=== PATIENT | male | born 1990 | race Caucasian/White ===

== ENCOUNTER 2016-06-07 00:32 | Emergency (ER) | payer OTHER ==
[~2016-06-07] VITALS: Ht 172.7 cm; Wt 128.8 kg
[~2016-06-07 00:32] MED LIST: MONT1TAB3 PO; WEIGHT LOSS MED PO
[2016-06-07 00:48] VITALS: TEMP 36.9; Ht 172.7 cm; Wt 128.8 kg
[2016-06-07] MEDS ORDERED: ONDANSETRON INJ 2 MG/ML 2 ML VIAL IV STA (01:32)
[2016-06-07] MEDS ORDERED: SODIUM CHLORIDE 0.9% 1000ML 1,000 ML IV ONE ×2 (01:45)
[2016-06-07 01:49] LABS: BASO % 0.3 %; BASO ABS # 0.02 K/uL (0-0.2); COMPLETE YES; EOS % 3.3 %; HEMATOCRIT 44.7 % (42-52); IG% 0.2 %; LYMPH % 25.7 %; LYMPH ABS # 1.69 K/uL (1.2-3.4); MEAN CELL VOLUME 80.8 fL (80-100); MEAN CORPUSCULAR HEMOGLOBIN 28.8 pg (25-34); MEAN CORPUSCULAR HGB CONC 35.6 g/dl (32-36); MEAN PLATELET VOLUME 9.1 fL (7.4-10.4); MONO % 13.1 %; NEUT % 57.4 %; PLATELET COUNT 183 K/uL (130-400); RED BLOOD COUNT 5.53 M/uL (4.7-6.1); WHITE BLOOD COUNT 6.57 K/uL (4.8-10.8)
[2016-06-07] MEDS ORDERED: OMEP40CA PO (01:49)
[2016-06-07 02:32] LABS: ALB/GLOB RATIO 0.9 (0.9-2); BUN/CREATININE RATIO 15.4 (10-20); CALCIUM 7.9 mg/dl (8.5-10.1); CREATININE 0.87 mg/dl (0.60-1.40); POTASSIUM 3.7 mmol/L (3.5-5.1)
[2016-06-07 02:42] VITALS: BP 122/78; PULSE 96; O2SAT 97
[2016-06-07] MEDS ORDERED: ONDANSETRON HOME PACK 4MG OD TAB PO ONE (04:15)
--- NOTE | 2016-06-07 07:15 | DIAGNOSTIC IMAGING REPORT ---
PA CHEST RADIOGRAPH AND UPRIGHT AND SUPINE AP RADIOGRAPHS OF THE ABDOMEN CLINICAL HISTORY: Abdominal cramping, nausea, vomiting and diarrhea. COMPARISON STUDY: Chest radiograph May 05, 2016 and abdominal ultrasound December 28, 2014 FINDINGS: Lung volumes are at the lower limits of normal. Lungs are clear. There is no pneumothorax or pleural effusion. Cardiac size is normal. Mediastinal contours are normal. There is no free air. There is mild rightward curvature of the lumbar spine. There are tiny radiodensities within the stool. There is no evidence for a bowel obstruction. IMPRESSION: 1. No free air or evidence of bowel obstruction. 2. No acute cardiopulmonary findings. Electronically signed by: Reuben Noel M.D. 06/07/2016 7:13 AM
--- NOTE | 2016-06-08 05:43 | EMERGENCY ROOM VISIT NOTE ---
History First contact with patient: 01:10 Chief Complaint: DIARRHEA Stated Complaint: DIARRHEA History of Present Illness The patient is a 26 year old male who presents to the Emergency Room with complaints of diarrhea for the past day. The patient does not report significant fever, chills, chest pain, chest, shortness of breath. He has abdominal cramping but nondistended abdominal pain. He has been taking Pepto- Bismol today to relieve his symptoms. The patient states that he initially had normal stools, then watery stools, and now he has black stools. He has not had similar symptoms in the past. He does not have a history of inflammatory bowel disease. No recent antibiotic use. He rates his discomfort a 6/10. Review of Systems More than 10 systems were reviewed and otherwise negative with the exception of history of present illness. Past Medical/Surgical History Medical Problems: (1) Hypercholesterolemia (2) Morbid Obesity Surgical Problems: (1) History of wisdom tooth extraction (2) No significant past surgical history Family History FH: diabetes mellitus FH: heart disease Social History Smoking Status: Never Smoker Alcohol Use: none Marital Status: Occupation Status: employed Current/Historical Medications Scheduled Montelukast Sodium (Singulair), 10 MG PO DAILY Omeprazole (Prilosec), 40 MG PO BID [Otc Weight Loss Med], 1 TAB PO DAILY Allergies Uncoded Allergies: SULFA (Allergy, Unknown, as an infant, 02/20/15) Physical Exam Vital Signs Date Time Temp Pulse Resp B/P Pulse Ox O2 Delivery O2 Flow Rate FiO2 06/07/16 02:42 96 19 122/78 97 Room Air 06/07/16 00:48 36.9 105 18 134/86 95 Room Air Pain Rating (0-10): 0 Physical Exam VITALS: Vitals are noted on the nurse's note and reviewed by myself. Vital signs stable. GENERAL: Well-developed, well-nourished, white male, who is in no acute distress and resting comfortably. Patient is cooperative with the examination. HEAD: Normocephalic atraumatic. MOUTH: Mucous membranes moist. Tonsils are not enlarged. Pharynx without erythema, blood, or exudate. Uvula midline. Airway patent. NECK: Supple without nuchal rigidity. No lymphadenopathy. No thyromegaly. Cervical spine is nontender. HEART: Regular rate and rhythm without murmurs gallops or rubs. LUNGS: Clear to auscultation bilaterally without wheezes, rales or rhonchi. No retractions or accessory muscle use. ABDOMEN: Positive normal bowel sounds x 4. Soft, nontender, without masses or organomegaly. No guarding or rebound tenderness. MUSCULOSKELETAL: No muscle atrophy, erythema, or edema noted. Full range of motion without joint tenderness in all extremities. Medical Decision & Procedures ER Provider Diagnostic Interpretation: PA CHEST RADIOGRAPH AND UPRIGHT AND SUPINE AP RADIOGRAPHS OF THE ABDOMEN CLINICAL HISTORY: Abdominal cramping, nausea, vomiting and diarrhea. COMPARISON STUDY: Chest radiograph May 05, 2016 and abdominal ultrasound December 28, 2014 FINDINGS: Lung volumes are at the lower limits of normal. Lungs are clear. There is no pneumothorax or pleural effusion. Cardiac size is normal. Mediastinal contours are normal. There is no free air. There is mild rightward curvature of the lumbar spine. There are tiny radiodensities within the stool. There is no evidence for a bowel obstruction. IMPRESSION: 1. No free air or evidence of bowel obstruction. 2. No acute cardiopulmonary findings. Laboratory Results 06/07/16 01:25 Red Blood Count 5.53, Mean Corpuscular Volume 80.8, Mean Corpuscular Hemoglobin 28.8, Mean Corpuscular Hemoglobin Concent 35.6, Mean Platelet Volume 9.1, Neutrophils (%) (Auto) 57.4, Lymphocytes (%) (Auto) 25.7, Monocytes (%) (Auto) 13.1, Eosinophils (%) (Auto) 3.3, Basophils (%) (Auto) 0.3, Neutrophils # (Auto ) 3.77, Lymphocytes # (Auto) 1.69, Monocytes # (Auto) 0.86, Eosinophils # (Auto ) 0.22, Basophils # (Auto) 0.02 06/07/16 01:25 Test 06/07/16 01:25 White Blood Count 6.57 K/uL (4.8-10.8) Red Blood Count 5.53 M/uL (4.7-6.1) Hemoglobin 15.9 g/dL (14.0-18.0) Hematocrit 44.7 % (42-52) Mean Corpuscular Volume 80.8 fL (80-100) Mean Corpuscular Hemoglobin 28.8 pg (25-34) Mean Corpuscular Hemoglobin Concent 35.6 g/dl (32-36) Platelet Count 183 K/uL (130-400) Mean Platelet Volume 9.1 fL (7.4-10.4) Neutrophils (%) (Auto) 57.4 % Lymphocytes (%) (Auto) 25.7 % Monocytes (%) (Auto) 13.1 % Eosinophils (%) (Auto) 3.3 % Basophils (%) (Auto) 0.3 % Neutrophils # (Auto) 3.77 K/uL (1.4-6.5) Lymphocytes # (Auto) 1.69 K/uL (1.2-3.4) Monocytes # (Auto) 0.86 K/uL (0.11-0.59) Eosinophils # (Auto) 0.22 K/uL (0-0.5) Basophils # (Auto) 0.02 K/uL (0-0.2) RDW Standard Deviation 37.5 fL (36.4-46.3) RDW Coefficient of Variation 12.9 % (11.5-14.5) Immature Granulocyte % (Auto) 0.2 % Immature Granulocyte # (Auto) 0.01 K/uL (0.00-0.02) Anion Gap 12.0 mmol/L (3-11) Est Creatinine Clear Calc Drug Dose 169.9 ml/min Estimated GFR () 139.0 Estimated GFR (Non- 120.0 BUN/Creatinine Ratio 15.4 (10-20) Calcium Level 7.9 mg/dl (8.5-10.1) Total Bilirubin 0.3 mg/dl (0.2-1) Aspartate Amino Transf (AST/SGOT) 20 U/L (15-37) Alanine Aminotransferase (ALT/SGPT) 33 U/L (12-78) Alkaline Phosphatase 122 U/L (45-117) Total Protein 7.5 gm/dl (6.4-8.2) Albumin 3.6 gm/dl (3.4-5.0) Globulin 3.9 gm/dl (2.5-4.0) Albumin/Globulin Ratio 0.9 (0.9-2) Chemistry Specimen Hemolysis Date/Time Source Procedure Growth Status 06/07/16 01:20 Stool C.difficile Toxin B Gene (PCR) - Final No C. difficile toxin B gene detected Complete Medications Administered Medications (Trade) Dose Ordered Sig/Itzel Route Start Time Stop Time Status Last Admin Dose Admin Sodium Chloride 1,000 ml @ 999 mls/hr Q1H1M ONCE IV 06/07/16 01:45 06/07/16 02:45 DC 06/07/16 01:42 999 MLS/HR Sodium Chloride (Nss 1000ml) 1,000 ml @ 999 mls/hr Q1H1M ONCE IV 06/07/16 01:45 06/07/16 02:45 DC 06/07/16 01:45 999 MLS/HR Ondansetron HCl (Zofran Inj) 4 mg NOW STAT IV 06/07/16 01:32 06/07/16 01:34 DC 06/07/16 01:32 4 MG Ondansetron HCl (ZOFRAN ODT 4MG Home Pack) 1 homepack UD ONCE PO 06/07/16 04:15 06/07/16 04:16 DC 06/07/16 04:14 1 HOMEPACK ED Course Physical exam and history were performed. Nursing notes and EMR were reviewed. Patient appears to have diarrhea for the past one day. The patient does not appear toxic on exam. IV access was established and labs were obtained. Patient was hydrated with normal saline. Stool sample was collected. The patient did have mild nausea and was provided IV Zofran here in the department. Plain films were obtained. The patient's blood work is as above and was reviewed. He does not have a significantly low blood cell count, anemia, bandemia, or gross lateral imbalance. Lipase and urinalysis are nondiagnostic. The patient's stool sample did not show positive for C. difficile. Culture is pending. Abdominal x -ray does not show obstructive process or free air. Overall the patient did have significant improvement after hydration here in the department. I suspect that his symptoms are viral or possibly food borne in nature. He will be given a home pack of Zofran and asked to refrain from using Pepto-Bismol. The patient should follow with his primary care physician in the next few days for recheck and was otherwise invited back to the ER with any new, worsening, or concerning symptoms. The chart was completed utilizing [employer] Voice Recognition Software. Grammatical errors, random word insertions, pronoun errors, and incomplete sentences are an occasional consequence of this system due to software limitations, ambient noise, and hardware issues. Any formal questions or concerns about the content, text, or information contained within the body of this dictation should be directly addressed to the provider for clarification. . Medical Decision Differential diagnosis: Etiologies such as appendicitis, diverticulitis, PUD, biliary pathology, UTI, pancreatitis, obstruction, mesenteric ischemia, aortic pathology, infections, inflammatory bowel disease, renal colic, as well as others were entertained. Impression Primary Impression: Diarrhea Departure Information Dispostion Home / Self-Care Condition FAIR Forms WORK / SCHOOL INSTRUCTIONS, HOME CARE DOCUMENTATION FORM, IMPORTANT VISIT INFORMATION Patient Instructions A Signature Page, [facility] Additional Instructions You were seen and evaluated today on an emergency basis only. This is not a substitute for, or an effort to provide, complete comprehensive medical care. It is not possible to recognize and treat all injuries or illnesses in a single emergency department visit. For this reason it is recommended that you followup with your primary care physician this week for ongoing care and evaluation. Drink plenty fluids and remain well hydrated. Zofran (homepack) 1 tablet every 6 hrs as needed for nausea. You are welcome to return to the emergency department anytime with new, worsening, or concerning symptoms.
[2016-07-21] MEDS ORDERED: HYDR-3419 PO (08:20)
== END 2016-06-07 04:15 | disposition home or self-care (01) ==
LOC: C.EDB 00:33
DX: R19.7 Diarrhea, unspecified (principal); R11.0 Nausea; E66.01 Morbid (severe) obesity due to excess calories; Z79.899 Other long term (current) drug therapy; Z68.41 Body mass index [BMI] 40.0-44.9, adult

== ENCOUNTER → 2016-07-21 | Day surgery (SDC) | payer OTHER ==
[2016-07-04 11:18] VITALS: Ht 172.7 cm; Wt 127.3 kg
[~2016-07-21] VITALS: Ht 172.7 cm; Wt 127.3 kg
[~2016-07-21] MED LIST changes: +ATROPINE SULFATE 0.1 MG/ML 5ML SYR IV PRN; +BUPIVACAINE 0.5 % 5 MG/1 ML MPF 30ML VIAL ONE; +CEFAZOLIN 3000 MG/65 ML D5W IV SCH; +DEXAMETHASONE SOD INJ 4 MG/ML VIAL ONE; +EpHEDrine SULFATE INJ 50 MG/ML AMP IV PRN; +FENTANYL CITRATE INJ 50 MCG/1 ML 2 ML VIAL IV PRN; +FENTANYL CITRATE INJ 50 MCG/1 ML 2 ML VIAL ONE; +HYDR-3419 PO; +HYDROCODONE/ACETAMOPHEN 5/325MG TAB PO PRN; +LACTATED RINGER'S 1000ML 1,000 ML IV SCH; +LIDOCAINE HCL 2% 2 ML VIAL (20MG/ML) ONE; +MIDAZOLAM HCL 1 MG/ML 2ML VIAL ONE; +NURSING VERBAL MED ORDER ONE; +OMEP40CA PO; +ONDANSETRON INJ 2 MG/ML 2 ML VIAL IV PRN; +ONDANSETRON INJ 2 MG/ML 2 ML VIAL ONE; +PROPOFOL IV EMULSION 10 MG/ML 20 ML VIAL IV ONE; -WEIGHT LOSS MED PO
--- NOTE | 2016-07-21 07:01 | History & Physical Bridge - SC ---
H&P Re-Evaluation Bridge Note: I have examined the patient, reviewed the History & Physical and in the interval since the performance of the History & Physical I have noted the following changes of clinical significance: No changes noted
--- NOTE | 2016-07-21 08:21 | Discharge Instructions-SurgCtr ---
Discharge Instructions Visit Reason for Visit: Sterilization Discharge Discharge Diagnosis / Problem: post op vasectomy Discharge Goals Goal(s): Decrease discomfort, Increase independence Activity Recommendations Activity Limitations: resume your previous activity Anesthesia . Post Anesthesia Instructions: If you have had General Anesthesia or IV Sedation: * Do not drive today. * Resume driving when surgeon permits. * Do not make important decisions or sign legal documents today. * Call surgeon for: 1. Temperature elevations greater than 101 degrees F. 2. Uncontrollable pain. 3. Excessive bleeding. 4. Persistent nausea and vomiting. 5. Medication intolerance (nausea, vomiting or rash). * For nausea and vomiting use only clear liquids such as: tea, soda, bouillon until nausea subsides, then gradually increase diet as tolerated. * If you have any concerns or questions, call your surgeon's office. If physician is unavailable and it is an emergency, call 911 or go to the nearest emergency room. . Diet Recommendations Home Diet: no limitations Procedures Procedures Performed: Vasectomy Under Anesthesia Pending Studies Studies pending at discharge: no Medical Emergencies . Who to Call and When: Medical Emergencies: If at any time you feel your situation is an emergency, please call 911 immediately. . Non-Emergent Contact Non-Emergency issues call your: Urologist . . "Provider Documentation" section prepared by Jaden Marie. [place] Drug Monitoring Program Drug Monitoring Findings: checked yesterday
[2016-07-21 09:19] VITALS: BP 136/86; PULSE 77; TEMP 36.4; O2SAT 96
--- NOTE | 2016-07-21 09:19 | Anesthesia Progress Nt - [facility] ---
Anesthesia Post Op Note Date & Time Jul 21, 2016 at 09:19 Vital Signs Pain Intensity: 0 Vital Signs Past 12 Hours Date Time Temp Pulse Resp B/P Pulse Ox O2 Delivery O2 Flow Rate FiO2 07/21/16 09:04 36.3 82 16 137/90 96 Room Air 07/21/16 08:58 149/100 07/21/16 08:54 90 12 07/21/16 08:54 93 12 96 07/21/16 08:53 75 14 07/21/16 08:53 75 14 149/91 95 07/21/16 08:50 36.5 85 19 156/99 97 Room Air 07/21/16 08:48 83 14 156/99 96 07/21/16 08:48 81 14 07/21/16 08:43 83 4 157/90 100 07/21/16 08:43 82 4 07/21/16 08:38 94 10 147/94 100 07/21/16 08:38 93 10 07/21/16 08:33 92 18 165/87 100 07/21/16 08:33 90 18 07/21/16 08:28 87 18 150/92 100 07/21/16 08:28 87 18 07/21/16 08:23 106 15 07/21/16 08:23 105 15 142/101 100 07/21/16 08:18 87 14 145/89 99 07/21/16 08:18 36.6 95 16 143/100 100 Mask 6 07/21/16 08:18 88 14 07/21/16 06:21 36.5 71 16 144/94 95 Room Air Notes Mental Status: alert / awake / arousable, participated in evaluation Pt Amnestic to Procedure: Yes Nausea / Vomiting: adequately controlled Pain: adequately controlled Airway Patency, RR, SpO2: stable & adequate BP & HR: stable & adequate Hydration State: stable & adequate Anesthetic Complications: no major complications apparent
--- NOTE | 2016-07-21 13:52 | OPERATIVE REPORT ---
DATE OF OPERATION: 07/21/2016 PROCEDURE PERFORMED: Bilateral vasectomy. HISTORY OF PRESENTATION: The patient is a 26-year-old male desiring vasectomy who had very difficult to feel vases in the office, who is scheduled for a vasectomy under anesthesia. DESCRIPTION OF THE PROCEDURE: The patient was brought to the operating room where he was given general anesthesia with Venodyne stockings. He was prepped and draped in the usual sterile fashion. The vas was first found on the right side, a small incision was made. The vas was grasped with a ring forceps. It was dissected free. Clips were placed on each end of the vas and the ends of the vases were cauterized. There was no evidence of any bleeding. The vas was placed back into the hemiscrotum and then closed. The other side was done in a like fashion. There was no evidence of any bleeding, 2 sutures of chromic were placed in each suture. It was a second suture admitted because I could not swing the first set to the second. Two pieces of vas were sent to pathology. Sponge and needle count were correct. I attest to the content of the Intraoperative Record and any orders documented therein. Any exceptio ns are noted below.
== END | disposition home or self-care (01) ==
LOC: X.SURG 06:01
PROVIDERS: ATTEND Urology
DX: Z30.2 Encounter for sterilization (principal); G47.19 Other hypersomnia; R53.83 Other fatigue; G47.30 Sleep apnea, unspecified

== ENCOUNTER 2017-08-26 21:51 | Emergency (ER) | payer BC, OTHER ==
[~2017-08-26] VITALS: Ht 172.7 cm; Wt 131.8 kg
[~2017-08-26 21:51] MED LIST changes: -ATROPINE SULFATE 0.1 MG/ML 5ML SYR IV PRN; -BUPIVACAINE 0.5 % 5 MG/1 ML MPF 30ML VIAL ONE; -CEFAZOLIN 3000 MG/65 ML D5W IV SCH; -DEXAMETHASONE SOD INJ 4 MG/ML VIAL ONE; -EpHEDrine SULFATE INJ 50 MG/ML AMP IV PRN; -FENTANYL CITRATE INJ 50 MCG/1 ML 2 ML VIAL IV PRN; -FENTANYL CITRATE INJ 50 MCG/1 ML 2 ML VIAL ONE; -HYDR-3419 PO; -HYDROCODONE/ACETAMOPHEN 5/325MG TAB PO PRN; -LACTATED RINGER'S 1000ML 1,000 ML IV SCH; -LIDOCAINE HCL 2% 2 ML VIAL (20MG/ML) ONE; -MIDAZOLAM HCL 1 MG/ML 2ML VIAL ONE; -NURSING VERBAL MED ORDER ONE; -ONDANSETRON INJ 2 MG/ML 2 ML VIAL IV PRN; -ONDANSETRON INJ 2 MG/ML 2 ML VIAL ONE; -PROPOFOL IV EMULSION 10 MG/ML 20 ML VIAL IV ONE
[2017-08-26 21:55] VITALS: TEMP 36.7; Ht 172.7 cm; Wt 131.8 kg
[2017-08-26] MEDS ORDERED: OMEP-334 PO (22:23)
--- NOTE | 2017-08-26 22:35 | DIAGNOSTIC IMAGING REPORT ---
L FOOT MIN 3 VIEWS ROUTINE CLINICAL HISTORY: 27 years-old Male presenting with foot pain. TECHNIQUE: Frontal, oblique, and lateral views of the left foot were obtained. COMPARISON: None. FINDINGS: No acute fracture or malalignment. Small bone spurs at the insertion of the Achilles tendon and origin of the plantar fascia. No advanced degenerative change. No radiographic soft tissue abnormality. IMPRESSION: No acute osseous injury. Electronically signed by: Adalberto Perez M.D. 08/26/2017 10:34 PM Dictated Date/Time: 08/26/2017 10:32 PM
[2017-08-26 23:36] VITALS: BP 143/79; PULSE 85; O2SAT 97
--- NOTE | 2017-08-26 23:45 | EMERGENCY ROOM VISIT NOTE ---
History First contact with patient: 22:05 Chief Complaint: TOE PAIN, INJURY Stated Complaint: PAIN IN L TOE History of Present Illness The patient is a 27 year old male who presents to the Emergency Room with complaints of pain in his left great toe. The patient reports that he was at work this morning and slipped and fell, rolling his ankle. He states that he does not have ankle pain, however he has pain radiating throughout his left great toe. The injury occurred at approximately 6 AM. He has had persistent pain through the day which is worse with walking. He rates his discomfort a 6/ 10 at rest, 9/10 when walking. He states the pain is dull. He denies numbness or weakness. He denies any further injuries. Review of Systems A 6 point review of systems was reviewed with the patient with pertinent positives and negatives as per history of present illness. All else were negative. Past Medical/Surgical History Medical Problems: (1) Hypercholesterolemia (2) Morbid Obesity Surgical Problems: (1) History of wisdom tooth extraction (2) No significant past surgical history Family History FH: diabetes mellitus FH: heart disease Social History Smoking Status: Never Smoker Alcohol Use: none Marital Status: Occupation Status: employed Current/Historical Medications Scheduled Montelukast Sodium (Singulair), 10 MG PO QAM Scheduled PRN Omeprazole (Omeprazole Dr), 40 MG PO DAILY PRN for Indigestion Physical Exam Vital Signs Date Time Temp Pulse Resp B/P (MAP) Pulse Ox O2 Delivery O2 Flow Rate FiO2 08/26/17 23:36 85 18 143/79 97 Room Air 08/26/17 21:55 36.7 88 18 157/94 97 Room Air Physical Exam VITALS: Vitals are noted on the nurse's note and reviewed by myself. Vital signs stable. GENERAL: This is a 27-year-old male, in no acute distress, nondiaphoretic, well- developed well-nourished. MUSCULOSKELETAL: There is mild tenderness to palpation over the left great toe and first metatarsal. Decreased range of motion, seems to be secondary to discomfort. NEURO: Patient was alert and oriented to person place and time. Normal sensation. Medical Decision & Procedures ER Provider Diagnostic Interpretation: L FOOT MIN 3 VIEWS ROUTINE CLINICAL HISTORY: 27 years-old Male presenting with foot pain. TECHNIQUE: Frontal, oblique, and lateral views of the left foot were obtained. COMPARISON: None. FINDINGS: No acute fracture or malalignment. Small bone spurs at the insertion of the Achilles tendon and origin of the plantar fascia. No advanced degenerative change. No radiographic soft tissue abnormality. IMPRESSION: No acute osseous injury. Medical Decision Differential diagnosis includes fracture, contusion, sprain, among others. The patient was evaluated as above. X-ray of the left foot was obtained and read by radiology with no acute findings. Patient was placed in a postoperative shoe for comfort. Conservative measures were discussed. The patient will follow up with his primary care provider or orthopedics as needed for persistent or worsening symptoms. Conservative measures were discussed. He verbalized understanding of my assessment and treatment plan and was discharged home in good condition. Medication Reconcilliation Current Medication List: was personally reviewed by me Blood Pressure Screening Patient's blood pressure: Elevated blood pressure Blood pressure disposition: Elevated BP felt to be situational Impression Primary Impression: Contusion of foot, left Departure Information Dispostion Home / Self-Care Condition GOOD Referrals Tom Patel M.D. (PCP) Patient Instructions My [facility] Additional Instructions You have been treated in the Emergency Department for a foot injury. For pain control, you can use the following [id number] medicines (if >12 yo): - Regular strength (325mg/tab) Tylenol (acetaminophen) 2 tabs every 4-6 hours as needed. Do not exceed 12 tablets in a 24 hour period. Avoid taking more than 4 grams (4000 mg) of Tylenol per day. This includes any other sources of acetaminophen you may take on a regular basis. - Regular strength (200 mg/tab) Advil (ibuprofen) 1-2 tabs every 4-6 hours as needed. Do not exceed a dose of 3200 mg per day. If this is a recent injury (<24 hrs), ice can be applied to the area of pain for the first 3 days to help decrease pain and inflammation. Follow-up with orthopedics for persistent or worsening pain in the foot. Return to the Emergency Department if your current symptoms worsen despite treatment course outlined above, or if you develop any of the following symptoms : intractable pain despite aforementioned treatment course or new onset of numbness or tingling of the foot. Problem Qualifiers Primary Impression: Contusion of foot, left Encounter type: initial encounter Qualified Codes: S90.32XA - Contusion of left foot, initial encounter
== END 2017-08-26 23:49 | disposition home or self-care (01) ==
LOC: C.EDB 21:51 → C.EDC 23:49
DX: S90.32XA Contusion of left foot, initial encounter (principal); W01.0XXA Fall on same level from slipping, tripping and stumbling without subsequent striking against object, initial encounter; Z83.3 Family history of diabetes mellitus; Z82.49 Family history of ischemic heart disease and other diseases of the circulatory system